=== PATIENT | female | born 1990 | race Caucasian/White ===

== ENCOUNTER 2017-05-23 13:20 | Inpatient (IN) | payer OTHER ==
[~2017-05-23] VITALS: Ht 153 cm; Wt 80.7 kg
[2017-11-12] MEDS ORDERED: RINGERS SOLUTION,LACTATED 1,000 ML IV PRN (16:53)
[2017-11-12] MEDS ORDERED: OXYTOCIN 30 UNITS/LACT RINGERS 500 ML IV ONE (16:53)
[2017-11-12] MEDS ORDERED: METOCLOPRAMIDE HCL 5 MG/ML 2 ML VIAL IVP PRN (17:00)
[2017-11-12] MEDS ORDERED: FentaNYL CITRATE-PF 100 MCG/2 ML VIAL IVP PRN (17:00)
[2017-11-12] MEDS ORDERED: CITRIC ACID/SODIUM CITRATE 30 ML SOLUTION UDCUP PO PRN (17:00)
[2017-11-12] MEDS ORDERED: LIDOCAINE HCL/PF 1% 30 ML VIAL INJ PRN (17:00)
[2017-11-12 17:46] LABS: BASOPHILS % (AUTO) 0.2 % (0.0-2.0); EOSINOPHILS % (AUTO) 7.9 % (1.0-6.0); HEMATOCRIT 36.4 % (36-46); LYMPHOCYTES # (AUTO) 2.3 K/uL (1.0-4.8); LYMPHOCYTES % (AUTO) 17.9 % (22.0-44.0); MEAN CORPUSCULAR HEMOGLOBIN 25.3 pg (26.0-34.0); MEAN CORPUSCULAR HGB CONC 32.9 G/dL (31.0-37.0); MEAN CORPUSCULAR VOLUME 77 fL (80-100); MONOCYTES # (AUTO) 1.5 K/uL (0.1-1.0); NEUTROPHILS # (AUTO) 7.9 K/uL (1.8-7.7); PLATELET COUNT (AUTO)-OB 275 K/uL (150-450); RED BLOOD CELL COUNT(AUTO) 4.74 MIL/uL (4.00-5.20); RED CELL DISTRIBUTION WIDTH 15.7 % (11.5-14.5)
[2017-11-12] MEDS ORDERED: MISOPROSTOL 25 MCG TABLET VG ONE ×2 (19:15)
[2017-11-12] MEDS ORDERED: OXYGEN THERAPY IH SCH (20:00)
[2017-11-12] MEDS: RINGERS SOLUTION,LACTATED 1,000 ML IV SCH (20:17)
[2017-11-12 20:23] VITALS: BP 120/77
[2017-11-13] MEDS: RINGERS SOLUTION,LACTATED 1,000 ML IV SCH ×3 (00:49→09:33)
[2017-11-13] MEDS ORDERED: MISOPROSTOL 25 MCG TABLET VG ONE (05:45)
[2017-11-13] MEDS ORDERED: ONDANSETRON HCL 4 MG/2 ML VIAL IVP PRN ×3 (08:30→13:15)
[2017-11-13] MEDS ORDERED: DiphenhydrAMINE HCL 50 MG/ML VIAL IVP PRN ×3 (08:30→13:15)
[2017-11-13] MEDS ORDERED: ROPIVACAINE HCL/PF 0.2% 100 ML ED PRN (08:30)
[2017-11-13] MEDS ORDERED: ROPIVACAINE HCL/PF 0.2% 100 ML ED ONE (08:36)
[2017-11-13] MEDS ORDERED: LIDOCAINE HCL/PF 2% 5 ML VIAL ONE ×2 (08:36→12:19)
[2017-11-13] MEDS ORDERED: EPHEDrine SULFATE 50 MG/ML VIAL IM ONE (12:00)
[2017-11-13] MEDS ORDERED: 0.9% SODIUM CHLORIDE 10 ML VIAL IVP ONE (12:00)
[2017-11-13] MEDS ORDERED: OXYTOCIN 10 UNITS/ML VIAL IM ONE (12:00)
[2017-11-13] MEDS ORDERED: FentaNYL CITRATE-PF 100 MCG/2 ML VIAL ONE (12:19)
[2017-11-13] MEDS ORDERED: MORPHINE SULFATE/PF 0.5 MG/ML 10 ML AMP ONE (12:19)
[2017-11-13] MEDS ORDERED: GUM MASTIC/STORAX/MSAL/ALCOHOL LIQUID 0.67 ML VIAL TP ONE (12:39)
[2017-11-13] MEDS ORDERED: MORPHINE SULFATE 2 MG/ML SYRINGE IVP PRN ×2 (13:00)
[2017-11-13] MEDS ORDERED: NALBUPHINE HCL 10 MG/ML VIAL IVP PRN ×3 (13:00→13:15)
[2017-11-13] MEDS ORDERED: MORPHINE SULFATE 10 MG/ML SYRINGE IVP PRN ×2 (13:00→13:15)
[2017-11-13] MEDS ORDERED: FentaNYL CITRATE-PF 100 MCG/2 ML VIAL IVP PRN ×4 (13:00→13:15)
[2017-11-13] MEDS ORDERED: MEPERIDINE HCL/PF 25 MG/0.5 ML AMP IVP PRN (13:00)
[2017-11-13] MEDS ORDERED: DEXAMETHASONE SOD PHOS 4 MG/ML VIAL IVP PRN (13:00)
[2017-11-13] MEDS ORDERED: ACETAMINOPHEN 1000 MG/ISO-OSM 100 ML IV ONE (13:06)
[2017-11-13] MEDS ORDERED: NALOXONE HCL 0.4 MG/ML VIAL IVP PRN (13:15)
[2017-11-13] MEDS ORDERED: SENNA/DOCUSATE SODIUM 187-50 MG TABLET PO PRN (13:30)
[2017-11-13] MEDS ORDERED: OxyCODONE HCL/ACETAMINOPHEN 5-325 MG TABLET PO PRN ×2 (13:30)
[2017-11-13] MEDS ORDERED: LANOLIN 7 GM OINTMENT TP PRN (13:30)
[2017-11-13] MEDS ORDERED: METHYLERGONOVINE MALEATE 0.2 MG TABLET PO PRN (13:30)
[2017-11-13] MEDS ORDERED: OXYGEN THERAPY IH SCH ×3 (20:00)
[2017-11-13] MEDS ORDERED: CeFAZolin 2 GM/DEXTROSE 50 ML IV SCH (20:35)
[2017-11-13] MEDS: ACETAMINOPHEN 1000 MG/ISO-OSM 100 ML IV SCH (23:01)
[2017-11-13] MEDS: DEXTROSE 5%-LACTATED RINGERS 1,000 ML IV SCH (23:01)
[2017-11-14 06:16] LABS: BASOPHILS % (AUTO) 0.1 % (0.0-2.0); EOSINOPHILS % (AUTO) 4.1 % (1.0-6.0); HEMOGLOBIN 10.9 g/dL (12.0-16.0); LYMPHOCYTES # (AUTO) 1.7 K/uL (1.0-4.8); LYMPHOCYTES % (AUTO) 10.5 % (22.0-44.0); MEAN CORPUSCULAR HEMOGLOBIN 25.9 pg (26.0-34.0); MEAN CORPUSCULAR HGB CONC 33.1 G/dL (31.0-37.0); MEAN CORPUSCULAR VOLUME 78 fL (80-100); MONOCYTES # (AUTO) 1.9 K/uL (0.1-1.0); MONOCYTES % (AUTO) 11.6 % (2.0-9.0); NEUTROPHILS # (AUTO) 11.8 K/uL (1.8-7.7); NEUTROPHILS % (AUTO) 73.7 % (40.0-70.0); PLATELET COUNT (AUTO)-OB 217 K/uL (150-450); RED BLOOD CELL COUNT(AUTO) 4.22 MIL/uL (4.00-5.20); RED CELL DISTRIBUTION WIDTH 15.8 % (11.5-14.5)
[2017-11-14] MEDS: ACETAMINOPHEN 1000 MG/ISO-OSM 100 ML IV SCH (06:50)
[2017-11-14] MEDS: CeFAZolin 2 GM/DEXTROSE 50 ML IV SCH ×2 (07:10→14:43)
[2017-11-14] MEDS: DEXTROSE 5%-LACTATED RINGERS 1,000 ML IV SCH (08:23)
[2017-11-14] MEDS: IBUPROFEN 800 MG TABLET PO PRN (16:34)
[2017-11-14] MEDS: MAGNESIUM HYDROXIDE SUSPENSION 30 ML UDCUP PO PRN (21:23)
[2017-11-15] MEDS: IBUPROFEN 800 MG TABLET PO PRN ×3 (04:26→17:22)
[2017-11-15] MEDS: MAGNESIUM HYDROXIDE SUSPENSION 30 ML UDCUP PO PRN (10:10)
[2017-11-15] MEDS ORDERED: HYDR-309 PO (17:03)
[2017-11-15] MEDS ORDERED: DSS100 PO (20:39)
[2017-11-15] MEDS ORDERED: HYDR28.45 TP (20:40)
[2017-11-15] MEDS ORDERED: FERR-89 PO (20:44)
[2017-11-15] MEDS ORDERED: IBUP-2070 PO (20:44)
== END 2017-11-15 21:30 | disposition home or self-care (01) | DRG 766 ==
LOC: UNDOADMOB 13:20 → 4S 13:20 → OBSVTOIN 11-12 16:22 → 4S 11-13 13:15
PROVIDERS: ADMIT Specialist; ATTEND Specialist
PROC: 10D00Z1 Extraction of Products of Conception, Low, Open Approach (ICD-10-PCS; principal; 2017-11-13)
DX: O76 Abnormality in fetal heart rate and rhythm complicating labor and delivery (principal); O77.0 Labor and delivery complicated by meconium in amniotic fluid; O48.0 Post-term pregnancy; Z3A.40 40 weeks gestation of pregnancy; Z37.0 Single live birth
CPT/HCPCS: 86850; 86900; 86901; J0131; J0690; J2274; J2590; J2765; J2795; J3010; J3490; J7120